=== PATIENT | female | born 1960 | race Caucasian/White ===

== ENCOUNTER 2019-05-14 13:16 | Emergency (ER) | payer BC ==
[2019-05-14] MEDS ORDERED: Codeine/guaiFENesin 100-10 MG/5 ML Syrup 5 ML Cup ONE ×2 (13:57→14:00)
[2019-05-14] MEDS ORDERED: Levofloxacin 500 MG Tab ONE ×2 (14:00→14:05)
--- NOTE | 2019-05-14 14:12 | EDM.PDOC ---
ED HPI GENERAL MEDICAL PROBLEM - General Chief Complaint: General Stated Complaint: SINUS INFECTION Time Seen by Provider: 05/14/19 13:30 Source of Information: Reports: Patient History Limitations: Reports: No Limitations - History of Present Illness INITIAL COMMENTS - FREE TEXT/NARRATIVE: According to patient she has been having nasal congestion and sinus drainage for past 8 days now. She was seen in the clinic Thursday, and diagnosed with Sinusitis and started Z-Germán. Patient claims she finished her Z-germán today and she still continues to have productive yellow productive cough and sinus drainage. No fever or chills. C/o headache. Cough worse at night. No wheezing or shortness of breath. Headache. Onset Date: 05/05/19 Duration: Getting Worse Improves with: Reports: None Worsens with: Reports: None Associated Symptoms: Reports: Cough, Headaches, Nausea/Vomiting. Denies: Confusion, Chest Pain, Diaphoresis, Fever/Chills, Rash, Seizure, Shortness of Breath, Syncope, Weakness - Related Data Allergies Allergy/AdvReac Type Severity Reaction Status Date / Time naproxen Allergy Sweating Verified 05/14/19 13:31 Home Meds: Home Meds Cetirizine HCl [Zyrtec] 10 mg PO DAILY 05/14/19 [History] Estrogens, Conjugated [Premarin] 0.625 mg PO DAILY 05/14/19 [History] Past Medical History Respiratory History: Reports: Other (See Below) Other Respiratory History: allergies-environmental Other Genitourinary History: Bladder hammich [employer] History: Reports: Social & Family History - Family History Family Medical History: Noncontributory - Tobacco Use Smoking Status *Q: Current Every Day Smoker Years of Tobacco use: 30 Packs/Tins Daily: 0.5 - Caffeine Use Caffeine Use: Reports: None - Alcohol Use Days Per Week of Alcohol Use: 1 Number of Drinks Per Day: 1 Total Drinks Per Week: 1 - Recreational Drug Use Recreational Drug Use: No ED ROS GENERAL - Review of Systems Review Of Systems: See Below Constitutional: Denies: Fever, Chills HEENT: Reports: Rhinitis, Sinus Problem. Denies: Ear Pain, Eye Discharge, Throat Pain Respiratory: Reports: Cough, Sputum. Denies: Shortness of Breath, Pleuritic Chest Pain Cardiovascular: Denies: Chest Pain, Lightheadedness GI/Abdominal: Denies: Abdominal Pain, Nausea, Vomiting : Denies: Discharge Musculoskeletal: Denies: Joint Pain, Joint Swelling ED EXAM, GENERAL - Physical Exam Exam: See Below Exam Limited By: No Limitations General Appearance: Alert, WD/WN, No Apparent Distress Eye Exam: Bilateral Eye: EOMI, PERRL Ears: Normal External Exam, Normal Canal, Hearing Grossly Normal, Normal TMs Ear Exam: Bilateral Ear: Auricle Normal, Canal Normal, TM normal Nose: Normal Inspection, Normal Mucosa, No Blood, Nasal Drainage Throat/Mouth: Normal Inspection, Normal Lips, Normal Teeth, Normal Gums, Normal Oropharynx, Normal Voice, No Airway Compromise Head: Atraumatic, Normocephalic Neck: Normal Inspection, Supple, Non-Tender, Full Range of Motion Respiratory/Chest: No Respiratory Distress, Lungs Clear, Normal Breath Sounds, No Accessory Muscle Use, Chest Non-Tender Cardiovascular: Normal Peripheral Pulses, Regular Rate, Rhythm, No Edema, No Gallop, No JVD, No Murmur, No Rub GI/Abdominal: Normal Bowel Sounds, Soft, Non-Tender, No Organomegaly, No Distention, No Abnormal Bruit, No Mass Course - Vital Signs Text/Narrative:: Pt has sinusitis. Her Chest Xray is normal. Her CBC shows white count of 12.3K. Pt reassured that she has sinusitis. As her symptoms are getting worse, I did empirically start her on Levaquin 500mg daily for 1 wk. Also given her Cherratussin Ac 5ml TID prn. Advised steam inhalations 2-3 times daily. Rest and hydration. Symptoms should gradually improve. Last Recorded V/S: Last Vital Signs Temp 99.3 F 05/14/19 13:21 Pulse 72 05/14/19 13:21 Resp 18 05/14/19 13:21 BP 127/55 L 05/14/19 13:21 Pulse Ox 95 05/14/19 13:21 - Orders/Labs/Meds Orders: Active Orders 24 hr Category Date Time Status Chest 2V [CR] Stat Exams 05/14/19 13:18 Taken Labs: Laboratory Tests 05/14/19 Range/Units 13:25 WBC 12.3 H (4.0-11.0) K/uL RBC 5.06 (3.80-5.80) M/uL Hgb 15.5 (11.5-16.5) g/dL Hct 45.7 (37.0-47.0) % MCV 90 (76-96) fL MCH 30.6 (27.0-32.0) pg MCHC 33.9 (31.0-35.0) g/dL RDW 13.2 (11.0-16.0) % Plt Count 253 (150-500) K/uL MPV 9.0 (6.0-10.0) fL Neut % (Auto) 54.1 (45.0-70.0) % Lymph % (Auto) 33.1 (20.0-40.0) % Loup % (Auto) 11.2 H (3.0-10.0) % Eos % (Auto) 1.2 (1.0-5.0) % Baso % (Auto) 0.4 (0.0-0.5) % Neut # (Auto) 6.67 (2.00-7.50) K/uL Lymph # (Auto) 4.09 H (1.50-4.00) K/uL Loup # (Auto) 1.38 H (0.20-0.80) K/uL Eos # (Auto) 0.15 (0.04-0.40) K/uL Baso # (Auto) 0.05 (0.02-0.10) K/uL Meds: Medications Discontinued Medications Generic Name Dose Route Start Last Admin Trade Name Freq PRN Reason Stop Dose Admin Guaifenesin/Codeine Phosphate Confirm 05/14/19 13:57 Robitussin Ac Administered 05/14/19 13:58 Dose 30 ml .ROUTE .STK-MED ONE Levofloxacin Confirm 05/14/19 14:05 Levaquin Administered 05/14/19 14:06 Dose 1,500 mg .ROUTE .STK-MED ONE Departure - Departure Time of Disposition: 14:30 Disposition: Home, Self-Care 01 Condition: Fair Clinical Impression: Sinusitis - Discharge Information Instructions: Upper Respiratory Infection, Adult Referrals: PCP,Not In Area [Primary Care Provider] - Forms: ED Department Discharge Additional Instructions: Discharge home. - Problem List & Annotations (1) Sinusitis SNOMED Code(s): 34854545 Code(s): J32.9 - CHRONIC SINUSITIS, UNSPECIFIED Status: Acute - Problem List Review Problem List Initiated/Reviewed/Updated: Yes - My Orders Last 24 Hours: My Active Orders 05/14/19 13:18 Chest 2V [CR] Stat - Assessment/Plan Last 24 Hours: My Active Orders 05/14/19 13:18 Chest 2V [CR] Stat Assessment:: Sinusitis Plan: Pt has sinusitis. Her Chest Xray is normal. Her CBC shows white count of 12.3K. Pt reassured that she has sinusitis. As her symptoms are getting worse, I did empirically start her on Levaquin 500mg daily for 1 wk. Also given her Cherratussin Ac 5ml TID prn. Advised steam inhalations 2-3 times daily. Rest and hydration. Symptoms should gradually improve.
--- NOTE | 2019-05-14 19:43 | CR ---
CLINICAL DIAGNOSIS: Chest congestion. PA AND LATERAL CHEST, 14 MAY 2019: No priors. The heart size is within normal limits. There is calcification of the aortic arch. The lungs are clear. No pneumothorax. No pleural effusions. No areas of consolidation. No other significant findings. Job: [id number] MTDD
== END 2019-05-14 14:10 | disposition home or self-care (01) ==
LOC: LB.ED 13:16
DX: J32.9 Chronic sinusitis, unspecified (principal); F17.210 Nicotine dependence, cigarettes, uncomplicated; Z88.6 Allergy status to analgesic agent
CPT/HCPCS: 36415; 71046; 85025; 99283; A9270

== ENCOUNTER 2021-06-23 08:29 | Emergency (ER) | payer BC ==
--- NOTE | 2021-06-23 10:21 | EDM.PDOC ---
ED HPI GENERAL MEDICAL PROBLEM - General Chief Complaint: Eye Problems Stated Complaint: RIGHT EYE PAIN/SWELLING Time Seen by Provider: 06/23/21 08:30 Source of Information: Reports: Patient, RN Notes Reviewed History Limitations: Reports: No Limitations - History of Present Illness INITIAL COMMENTS - FREE TEXT/NARRATIVE: This patient presents to the emergency department for evaluation of eye redness. She states that she has a history of chronic dry eye in the right eye and she rubbed it on Thursday evening. Since that time she has had some irritation and this morning woke up with significant redness, some swelling, and eye drainage. She denies any discomfort to the left eye. She denies other symptoms or concerns. - Related Data Allergies Allergy/AdvReac Type Severity Reaction Status Date / Time naproxen Allergy Sweating Verified 06/23/21 08:50 Home Meds: Home Meds Cetirizine HCl [Zyrtec] 10 mg PO DAILY 05/14/19 [History] Estrogens, Conjugated [Premarin] 0.625 mg PO DAILY 05/14/19 [History] Past Medical History Respiratory History: Reports: Other (See Below) Other Respiratory History: allergies-environmental Other Genitourinary History: Bladder hammich [employer] History: Reports: Social & Family History - Family History Family Medical History: No Pertinent Family History - Caffeine Use Caffeine Use: Reports: None ED ROS GENERAL - Review of Systems Review Of Systems: Comprehensive ROS is negative, except as noted in HPI. ED EXAM GENERAL W FULL EYE - Physical Exam Exam: See Below Exam Limited By: No Limitations General Appearance: Alert, No Apparent Distress Eye Exam: Right Eye: Conjunctival Injection, Corneal Abrasion (6 o'clock positi on), Foreign Body (None noted), Left Eye: Normal Inspection, Bilateral Eye: PERRL Eyelids: Right: Edema (Mild), Left: Normal Appearance Conjunctiva & Sclera: Right: Injected, Left: Normal Appearance Cornea Exam: Right: Corneal Abrasion, Left: Normal Appearance Extraocular Movements: Bilateral: Intact Ears: Normal External Exam Nose: Normal Inspection Head: Atraumatic, Normocephalic Neck: Normal Inspection, Full Range of Motion Respiratory/Chest: No Respiratory Distress, No Accessory Muscle Use Neurological: Alert, Oriented Skin Exam: Warm, Dry, Intact, Normal Color ED EYE w/ Add Procedure - Eye Procedure Alcaine Drops Administered: Yes Antibiotic Oinment/Drps Admin: Right Eye Progress: Fluorescein eye exam completed; increased dye uptake to area at 6 o'clock position of right eye. Course - Re-Assessments/Exams Free Text/Narrative Re-Assessment/Exam: 06/23/21 10:21 This patient presents for evaluation of eye irritation. History and clinical findings are most consistent with a corneal abrasion. This was noted with a Wilson lamp exam after the eye was stained with fluorescein. There is no evidence of a penetrating globe injury, corneal clouding, irregular pupil, hyphema, iritis, infectious keratitis, or scleritis. There was no foreign body noted. She was treated with eye ointment today and requested that her eye be p atched. I did discuss with her the lack of efficacy for this; however, she did request this. 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 Departure - Departure Time of Disposition: 08:50 Disposition: Home, Self-Care 01 Clinical Impression: Corneal abrasion - Discharge Information *PRESCRIPTION DRUG MONITORING PROGRAM REVIEWED*: Not Applicable *COPY OF PRESCRIPTION DRUG MONITORING REPORT IN PATIENT EDDIE: Not Applicable Instructions: Corneal Abrasion, [id number] Forms: ED Department Discharge Additional Instructions: DC with DC instructions and Erythromycin Opth. ointment. Instructed per Chikis to apply oint to R eye 3 times a day for 2 days. Return to clinic or ED if symptoms do not improve or worsen. Verb understanding.
== END 2021-06-23 08:54 | disposition home or self-care (01) ==
LOC: LB.ED 08:29
DX: S05.01XA Injury of conjunctiva and corneal abrasion without foreign body, right eye, initial encounter (principal); Z88.8 Allergy status to other drugs, medicaments and biological substances; X58.XXXA Exposure to other specified factors, initial encounter
CPT/HCPCS: 99282